=== PATIENT | male | born 2000 | race Caucasian/White ===

== ENCOUNTER 2024-11-08 15:51 | Emergency (ER) | payer BC, OTHER ==
[~2024-11-08] VITALS: Ht 180.3 cm; Wt 90.9 kg
[~2024-11-08 15:51] MED LIST: NO HOME MEDS
[2024-11-08 15:55] VITALS: BP 125/98; PULSE 103; RESP 15; TEMP 98.2; O2SAT 99
[2024-11-08] MEDS ORDERED: PERM60CR27 TP (16:03)
[2024-11-08] MEDS: Permethrin Cream 60gm TP ONE (16:07)
== END 2024-11-08 16:08 | disposition home or self-care (01) ==
LOC: ER 15:52
DX: B86 Scabies (principal)
CPT/HCPCS: 99282

== ENCOUNTER 2025-06-25 19:53 | Emergency (ER) | payer OTHER ==
[~2025-06-25] VITALS: Ht 180.3 cm; Wt 95.4 kg
[2025-06-25 19:57] VITALS: BP 142/89; PULSE 80; RESP 15; TEMP 97.3; O2SAT 98
[2025-06-25] MEDS ORDERED: dexamethasone sod phosphate 10mg/ml inj PO STA (20:00)
--- NOTE | 2025-06-25 20:00 | Physician Documentation ---
History of Present Illness ~ Stated Complaint: FLU Time Seen by MD: 19:57 Primary Medical Doctor: JENNIFER REARDON HPI 24-year-old male presents to the ED complaining of a sore throat congestion in a minor cough for the last three days. Denies any history of asthma reports gener al malaise Medication Reconciliation Allergies: Coded Allergies: No Known Allergies (Unverified , 06/25/25) Miscellaneous Medications [No Home Meds], (Reported) Past Medical History Past Medical History: No Pertinent History Alcohol Use: None Drug Use: none Lives with: Father Lives In: Home Occupation: student Review of Systems All Other Systems at this time: Reviewed and Negative ROS As stated above in the HPI, otherwise all systems are reviewed and negative. Physical Exam Physical Exam General: Alert, no apparent distress. HEENT: PERRL, EOMI, no injection, moist mucous membranes. Inflamed pharynx Neck: Full range of motion. Respiratory: Lungs clear, no respiratory distress. Chest: No accessory muscle use. Cardiovascular: Regular rate and rhythm, no murmurs. Gastrointestinal: Soft, nontender, nondistended. Bowels sounds present. Extremities: Normal range of motion, no deformity. Neurologic: Oriented x4. Psychiatric: Normal mood and affect. Skin: Normal color, warm and dry. No edema, no ecchymosis. Progress Results/Orders Results/Orders Orders - AVINASH RAZO NP Covid19 Binax Poc Result Entry (06/25/25 20:00) Completed Orders - AVINASH RAZO NP Dexamethasone Inj (Decadron 10mg/Ml Inj) (06/25/25 20:03) Influenza Type A&B Rapid Test (06/25/25 20:46) Medications Received in ER Medications (Trade) Dose Ordered Sig/Sun Route PRN Reason Start Time Stop Time Status Last Admin Dose Admin (Decadron 10mg/ ml inj) 10 mg ONCE STAT PO 06/25/25 20:03 06/25/25 20:12 DC 06/25/25 20:45 10 MG Vital Signs 06/25/25 19:57 Temp 97.3 Pulse 80 Resp 15 B/P (MAP) 142/89 Pulse Ox 98 Laboratory Tests Test 06/25/25 20:43 Influenza Type A Antigen Negative Influenza Type B Antigen Negative SARS-CoV-2 Antigen (Rapid) Negative Medical Decision Making Additional information obtaine: old records Findings Evaluating patient for COVID and a pharyngitis. Patient in no acute distress eloped Differential Dx:Considerations: Include: Allergic rhinitis, Influenza, Otitis media, Peritonsillar abscess, Pharyngitis-Diphtheria, Pharyngitis-Streptoccal, Pharyngitis-Viral, Pneumonia, Pnuemonitis, Sinusitis, URI, Other Departure Disposition: 07 LEFT AWOL/ELOPED Impression: Primary Impression: Irritation of pharynx Additional Impression: Acute pharyngitis Referrals: NO PRIMARY CARE PROVIDER (PCP) Signature Scribe Signature: e Attestation: Scribed for Avinash Razo Agriculture Laboratory Technician by Avinash Lovett NP . 06/25/25 23:04 AVINASH RAZO DYE AUTOMATION OPERATOR Jun 25, 2025 20:00
[2025-06-25] MEDS ORDERED: DEXAMETHASONE 6 MG TABLET PO STA (20:02)
[2025-06-25] MEDS: dexamethasone sod phosphate 10mg/ml inj PO STA (20:45)
[2025-06-25 21:11] LABS: INFLUENZA TYPE A ANTIGEN RAPID NEGATIVE (Negative); INFLUENZA TYPE B ANTIGEN RAPID NEGATIVE (Negative)
== END 2025-06-25 21:27 | disposition left against medical advice (07) ==
LOC: ER 19:54
DX: J39.2 Other diseases of pharynx (principal); J02.9 Acute pharyngitis, unspecified; Z20.822 Contact with and (suspected) exposure to COVID-19
CPT/HCPCS: 36415; 87804; 87811; 99283; J1100